=== PATIENT | male | born 1940 | race Hispanic/Latino ===

== ENCOUNTER 2017-08-24 11:55 | Emergency (ER) | payer MEDICARE, OTHER ==
[2017-08-24 11:55] VITALS: BMI 24.2
[2017-08-24] MEDS ORDERED: POLYETHYLENE GLYCOL 3350 17 GM/Dose PACKET PO STA (12:49)
--- NOTE | 2017-08-24 12:57 | ED PDOC ---
Arrival/HPI - General Chief Complaint: GI Problem Time Seen by Provider: 08/24/17 12:13 Historian: Patient - History of Present Illness Narrative History of Present Illness (Text): 08/24/17 12:51 You were treated in the ED today, with past medical history of cholesterol and hypertension, for several days of ongoing constipation unimproved after miralax and now creating pressure and difficulty urinating otherwise without any fever, nausea/vomiting/headache/dizziness/difficulty breathing/chest pain/abdomen pain/ numbness/tingling/loss of limb function or any other complaints. Time/Duration: Other (several days) Symptom Onset: Gradual Symptom Course: Unchanged Activities at Onset: Light Context: Home Past Medical History - Provider Review Nursing Documentation Reviewed: Yes - Cardiac Hx Cardiac Disorders: Yes Hx Hypertension: Yes - Pulmonary Hx Respiratory Disorders: No - Neurological Hx Neurological Disorder: No - HEENT Hx HEENT Disorder: No - Renal Hx Renal Disorder: No - Endocrine/Metabolic Hx Endocrine Disorders: No - Hematological/Oncological Hx Blood Disorders: No - Integumentary Hx Dermatological Disorder: No - Musculoskeletal/Rheumatological Hx Musculoskeletal Disorders: Yes - Gastrointestinal Hx Gastrointestinal Disorders: No - Genitourinary/Gynecological Hx Genitourinary Disorders: No - Psychiatric Hx Psychophysiologic Disorder: No Hx Substance Use: No - Surgical History Other/Comment: COLONOSCOPY - Anesthesia Hx Anesthesia Reactions: No Hx Malignant Hyperthermia: No - Suicidal Assessment Feels Threatened In Home Enviroment: No Family/Social History - Physician Review Nursing Documentation Reviewed: Yes Family/Social History: No Known Family HX Smoking Status: Never Smoked Hx Alcohol Use: Yes (WINE ON OCCASION) Hx Substance Use: No Allergies/Home Meds Allergies/Adverse Reactions: Allergies No Known Allergies Allergy (Verified 08/24/17 12:03) Home Medications: Home Meds Medication Instructions Recorded Confirmed Aspirin [Ecotrin] 81 mg PO DAILY 11/21/14 08/24/17 Atorvastatin Calcium [Lipitor] 10 mg PO HS 11/21/14 08/24/17 Coenzyme Q10 [Co Q-10] 200 mg PO DAILY 11/21/14 08/24/17 Isosorbide Mononitrate [Imdur] 60 mg PO QAM 11/21/14 08/24/17 Losartan [Cozaar] 50 mg PO QAM 11/21/14 08/24/17 Metoprolol Tartrate 25 mg PO BID 11/21/14 08/24/17 Multivitamin and [id number] 1 tab PO DAILY 11/21/14 08/24/17 [Centrum Silver] [id number] [Glucosamine & 2 tab PO DAILY 11/21/14 08/24/17 Chondroitin Plus] Review of Systems - Physician Review All systems were reviewed & negative as marked: Yes - Review of Systems Constitutional: Normal. absent: Fevers Eyes: Normal ENT: Normal Respiratory: Normal. absent: SOB Cardiovascular: Normal. absent: Chest Pain Gastrointestinal: Constipation. absent: Abdominal Pain, Diarrhea, Nausea, Vomiting Genitourinary Male: Other (difficulty urinating associated with constipation) Musculoskeletal: Normal Skin: Normal Neurological: Normal. absent: Headache, Dizziness Endocrine: Normal Hemo/Lymphatic: Normal Psychiatric: Normal Physical Exam Vital Signs Reviewed: Yes Vital Signs Temp Pulse Resp BP Pulse Ox 08/24/17 14:53 59 L 18 104/58 L 98 08/24/17 12:04 98.2 F 62 16 109/49 L 96 Temperature: Afebrile Blood Pressure: Normal Pulse: Regular Respiratory Rate: Normal Appearance: Positive for: Well-Appearing, Non-Toxic, Comfortable Pain Distress: None Mental Status: Positive for: Alert and Oriented X 3 - Systems Exam Head: Present: Atraumatic, Normocephalic Pupils: Present: PERRL Extroacular Muscles: Present: EOMI Conjunctiva: Present: Normal Respiratory/Chest: Present: Clear to Auscultation, Good Air Exchange. No: Respiratory Distress, Accessory Muscle Use Cardiovascular: Present: Regular Rate and Rhythm, Normal S1, S2. No: Murmurs Abdomen: Present: Normal Bowel Sounds. No: Tenderness, Distention, Peritoneal Signs Rectal: Present: Other (firm stool around the rectum but no blood noted.) Upper Extremity: Present: Normal Inspection. No: Cyanosis, Edema Lower Extremity: Present: Normal Inspection. No: Edema Neurological: Present: GCS=15, CN II-XII Intact, Speech Normal Skin: Present: Warm, Dry, Normal Color. No: Rashes Psychiatric: Present: Alert, Oriented x 3, Normal Insight, Normal Concentration Medical Decision Making ED Course and Treatment: 08/24/17 12:57 Impression: You were treated in the ED today, with past medical history of cholesterol and hypertension, for several days of constipation unimproved after miralax and now creating pressure and difficulty urinating otherwise without any fever, nausea/ vomiting/headache/dizziness/difficulty breathing/chest pain/abdomen pain/ numbness/tingling/loss of limb function or any other complaints. You were otherwise breathing easily, smiling at bedside, good strength/sensation, walking easily, clear lungs, no abdomen tenderness, your vision was such no fever temp 98.2, stable heart rate 62, stable breathing rate 16, excellent oxygen level 96 % room air, low blood pressure 109/49 which we recommend repeat in 2-3 days primary care office to determine further treatment, ultrasound bedside of bladder with 600cc of urine noted and drained the same, miralax, lactulose given with small stool passage thus enemas x4 with disimpaction of rectum with significantly large multiple bowel movements, you had a post-urine passage as well, observation done in the ED with complete resolution of your symptoms and you wanted to go home, counselled to drink lots of fluids for hydration/continue your regular stool softener regimen that you take daily as you have had milder bouts of constipation in the past and thus discharged home with . 1. Recommend continue over the counter miralax as directed for stool softener. 2. Recommend follow-up primary care 2-3 days to review symptoms, though you stated you have had a normal colonoscopy 2-3 years ago without significant findings - recommend referral to gastroenterology clinic to review your symptoms/ensure no complications/cancer development. 4. If any worsening pain, fever, chills, nausea, vomiting, difficulty breathing, numbness, loss of limb function, pain with urination or any medical condition then return to the ED. Plan: -- Enulose -- Miralax 08/24/17 14:49 08/24/17 17:27 08/24/17 17:31 Reassessment Condition: Re-examined, Improved - Medication Orders Current Medication Orders: Discontinued Medications Lactulose (Enulose) 20 gm PO ONCE STA Stop: 08/24/17 12:50 Last Admin: 08/24/17 13:07 Dose: 20 gm Polyethylene Glycol (Miralax) 17 gm PO STAT STA Stop: 08/24/17 12:50 Last Admin: 08/24/17 13:07 Dose: 17 gm Sodium Phosphate (Fleet Enema) 135 ml RC STAT STA Stop: 08/24/17 15:05 Last Admin: 08/24/17 16:49 Dose: 135 ml Sodium Phosphate (Fleet Enema) 135 ml RC STAT STA Stop: 08/24/17 15:06 Last Admin: 08/24/17 16:49 Dose: 135 ml Sodium Phosphate (Fleet Enema) 135 ml RC STAT STA Stop: 08/24/17 15:07 Last Admin: 08/24/17 16:50 Dose: 135 ml Sodium Phosphate (Fleet Enema) 135 ml RC STAT STA Stop: 08/24/17 16:51 - Scribe Statement The provider has reviewed the documentation as recorded by the Scribe Marleni Yan. All medical record entries made by the Scribe were at my direction and personally dictated by me. I have reviewed the chart and agree that the record accurately reflects my personal performance of the history, physical exam, medical decision making, and the department course for this patient. I have also personally directed, reviewed, and agree with the discharge instructions and disposition. Disposition/Present on Arrival - Present on Arrival Any Indicators Present on Arrival: No History of DVT/PE: No History of Uncontrolled Diabetes: No Urinary Catheter: No History of Decub. Ulcer: No History Surgical Site Infection Following: None - Disposition Have Diagnosis and Disposition been Completed?: Yes Diagnosis: Constipation Disposition: HOME/ ROUTINE Disposition Time: 17:32 Patient Plan: Discharge Condition: IMPROVED Discharge Instructions (ExitCare): Constipation, Adult (DC) Additional Instructions: You were treated in the ED today, with past medical history of cholesterol and hypertension, for several days of constipation unimproved after miralax and now creating pressure and difficulty urinating otherwise without any fever, nausea/ vomiting/headache/dizziness/difficulty breathing/chest pain/abdomen pain/ numbness/tingling/loss of limb function or any other complaints. You were otherwise breathing easily, smiling at bedside, good strength/sensation, walking easily, clear lungs, no abdomen tenderness, your vision was such no fever temp 98.2, stable heart rate 62, stable breathing rate 16, excellent oxygen level 96 % room air, low blood pressure 109/49 which we recommend repeat in 2-3 days primary care office to determine further treatment, ultrasound bedside of bladder with 600cc of urine noted and drained the same, miralax, lactulose given with small stool passage thus enemas x4 with disimpaction of rectum with significantly large multiple bowel movements, you had a post-urine passage as well, observation done in the ED with complete resolution of your symptoms and you wanted to go home, counselled to drink lots of fluids for hydration/continue your regular stool softener regimen that you take daily as you have had milder bouts of constipation in the past and thus discharged home with . 1. Recommend continue over the counter miralax as directed for stool softener. 2. Recommend follow-up primary care 2-3 days to review symptoms, though you stated you have had a normal colonoscopy 2-3 years ago without significant findings - recommend referral to gastroenterology clinic to review your symptoms/ensure no complications/cancer development. 4. If any worsening pain, fever, chills, nausea, vomiting, difficulty breathing, numbness, loss of limb function, pain with urination or any medical condition then return to the ED. Forms: [facility] (Yoruba)
[2017-08-24 17:51] VITALS: BP 109/57; PULSE 64; TEMP 98
[2017-08-24 18:08] VITALS: RESP 18; O2SAT 99
== END 2017-08-24 18:00 | disposition home or self-care (01) ==
LOC: ED 11:55
DX: K59.00 Constipation, unspecified (principal); I10 Essential (primary) hypertension